=== PATIENT | male | born 1940 | race Caucasian/White ===

== ENCOUNTER 2021-05-25 10:09 | Outpatient (CLI) | payer MEDICARE, BC ==
[~2021-05-25 10:09] MED LIST: ACET325T26 PO; ATOR10TA PO; ERTA1VIA4 IV; POLY17PO5 PO; SILD20TA PO; TAMS-11 PO; TRAN1TAB18 PO; VERA240T PO
[2021-05-25] MEDS ORDERED: FINA5TAB4 PO (10:53)
[2021-05-25] MEDS ORDERED: OMEG-170 PO (10:53)
[2021-05-25 11:23] LABS: BASOPHILS % (AUTO) 1 % (0-1); EOSINOPHILS % (AUTO) 1 % (1-7); LYMPHOCYTES % (AUTO) 18 % (22-44); MEAN CORPUSCULAR HEMOGLOBIN 32.3 pg (27.5-34.5); MEAN CORPUSCULAR HGB CONC 33.7 g/dL (33.2-36.2); MEAN PLATELET VOLUME 7.8 fL (7.4-10.4); MONOCYTES % (AUTO) 13 % (2-9); NEUTROPHILS % (AUTO) 69 % (42-75); PLATELET COUNT 264 x10^3/uL (130-400); RED BLOOD COUNT 4.87 x10^6/uL (4.38-5.82); RED CELL DISTRIBUTION WIDTH 12.7 % (9.4-14.8)
[2021-05-25 11:26] LABS: MICROSCOPIC AUTO
[2021-05-25 11:31] LABS: ANION GAP 7 mmol/L (5-15); CALCIUM 9.1 mg/dL (8.5-10.1); CHLORIDE 108 mmol/L (98-107); CREATININE 1.17 mg/dL (0.7-1.3)
[2021-05-25 11:33] LABS: INTERNATIONAL NORMALIZED RATIO 0.97 (0.93-1.1); PROTHROMBIN TIME 10.4 Seconds (9.6-11.5)
== END 2021-05-25 23:59 | disposition home or self-care (01) ==
LOC: STAR 10:09
PROVIDERS: ATTEND Urology
DX: Z01.818 Encounter for other preprocedural examination (principal); N40.1 Benign prostatic hyperplasia with lower urinary tract symptoms; I44.4 Left anterior fascicular block; R94.31 Abnormal electrocardiogram [ECG] [EKG]
CPT/HCPCS: 36415; 80048; 81001; 85025; 85610; 87086; 93005

== ENCOUNTER 2021-06-07 09:46 | Day surgery (SDC) | payer MEDICARE, BC ==
[~2021-06-07] VITALS: Ht 182.9 cm; Wt 94.5 kg
[~2021-06-07 09:46] MED LIST changes: +FINA5TAB4 PO; +OMEG-170 PO
[2021-06-07 10:01] VITALS: BP 128/92
[2021-06-07] MEDS ORDERED: CHLORHEXIDINE 15 ML UDC ONE (10:10)
[2021-06-07] MEDS ORDERED: MIDAZOLAM 1 MG/ML, 2ML ONE (10:20)
[2021-06-07] MEDS ORDERED: FENTANYL PF 250 MCG/5ML ONE (10:21)
[2021-06-07] MEDS ORDERED: CHLORHEXIDINE 15 ML UDC PO ONE (10:30)
[2021-06-07] MEDS ORDERED: LACTATED RINGERS 1,000 ML IV SCH (10:30)
[2021-06-07] MEDS ORDERED: PROMETHAZINE 25 MG/ML, 1ML IV PRN (11:30)
[2021-06-07] MEDS ORDERED: HYDROmorphone 1 MG/ML, 1ML INJ IV PRN (11:30)
[2021-06-07] MEDS ORDERED: LABETALOL 5MG/ML, 20ML IV PRN (11:30)
[2021-06-07] MEDS ORDERED: OXYcodone 5 MG/5 ML ORAL.SOL UDC PO PRN (11:30)
[2021-06-07] MEDS ORDERED: FENTANYL PF 100 MCG/2ML IV PRN (11:30)
[2021-06-07] MEDS ORDERED: KETOROLAC 30 MG/1 ML IV PRN (11:30)
[2021-06-07] MEDS ORDERED: hydrALAzine 20 MG/ML, 1ML IV PRN (11:30)
[2021-06-07] MEDS ORDERED: METOCLOPRAMIDE 5 MG/ML, 2ML IV PRN (11:30)
[2021-06-07] MEDS ORDERED: ALBUTEROL SULFATE 2.5 MG/3 ML NPPB PRN (11:30)
[2021-06-07] MEDS ORDERED: MEPERIDINE/PF 25MG/0.5ML IVPush PRN (11:30)
[2021-06-07] MEDS ORDERED: ONDANSETRON 2MG/ML, 2ML IVPush PRN (11:30)
[2021-06-07] MEDS ORDERED: DIAZEPAM 5 MG/ML, 2ML IV PRN ×2 (11:30)
[2021-06-07] MEDS ORDERED: OPIUM/BELLADONNA SUPP.RECT 16.2-30 MG ONE (11:38)
[2021-06-07] MEDS ORDERED: FUROSEMIDE 20 MG/2 ML ONE (12:01)
== END 2021-06-07 14:25 | disposition home or self-care (01) ==
LOC: OR 09:46
PROVIDERS: ATTEND Urology
DX: N40.1 Benign prostatic hyperplasia with lower urinary tract symptoms (principal); N13.8 Other obstructive and reflux uropathy; Z20.822 Contact with and (suspected) exposure to COVID-19
CPT/HCPCS: 52601; 87635; 88305; J1940; J2250; J3010; J7120